=== PATIENT | male | born 1985 ===

== ENCOUNTER 2019-06-23 01:38 | Emergency (ER) | payer SELFPAY ==
[2019-06-23 02:01] VITALS: BP 135/87
[2019-06-23 02:36] LABS: Basophils # (Auto) 0.2 K/mm3 (0.0-0.1); Basophils % (Auto) 2.6 % (0.0-1.8); Eosinophils # (Auto) 0.1 K/mm3 (0.0-0.4); Eosinophils % (Auto) 1.2 % (0.0-4.3); Hematocrit 41.5 % (35.5-45.6); Hemoglobin 13.8 gm/dl (11.8-15.2); Lymphocytes # (Auto) 2.2 K/mm3 (1.2-5.4); Mean Corpuscular HGB Conc 33 % (32-34); Mean Corpuscular Volume 87 fl (84-94); Monocytes # (Auto) 0.3 K/mm3 (0.0-0.8); Monocytes % (Auto) 4.6 % (0.0-7.3); Platelet Count 257 K/mm3 (140-440); Red Blood Count 4.79 M/mm3 (3.65-5.03); Red Cell Distribution Width 13.3 % (13.2-15.2)
[2019-06-23 02:59] LABS: Alanine Aminotransferase 24 units/L (7-56); Albumin 4.5 g/dL (3.9-5); BUN/Creatinine Ratio 16; Blood Urea Nitrogen 14 mg/dL (9-20); Calcium 9.1 mg/dL (8.4-10.2); Hemolysis Index 20
--- NOTE | 2019-06-23 03:25 | Emergency Department Report ---
ED Abdominal Pain HPI - General Chief Complaint: Abdominal Pain Stated Complaint: RT SIDE PAIN Time Seen by Provider: 06/23/19 03:21 Source: patient Mode of arrival: Ambulatory Limitations: No Limitations - History of Present Illness Initial Comments: 34-year-old -[place] male presents to the emergency room for right flank pain 3 days. Patient reports that the pain is worse tonight. When I interviewed patient patient states that the pain has resolved. Patient has not taken anything for pain. He denies any nausea vomiting no urination pain. MD Complaint: abdominal pain Location: R flank Severity scale (0 -10): 0 - Related Data Allergies Allergy/AdvReac Type Severity Reaction Status Date / Time No Known Allergies Allergy Unverified 06/23/19 02:01 ED Review of Systems ROS: Stated complaint: RT SIDE PAIN Other details as noted in HPI Comment: All other systems reviewed and negative ED Past Medical Hx - Past Medical History Previous Medical History?: No - Surgical History Past Surgical History?: No - Social History Smoking Status: Never Smoker Substance Use Type: None ED Physical Exam - General Limitations: No Limitations General appearance: alert, in no apparent distress - Head Head exam: Present: atraumatic, normocephalic - Eye Eye exam: Present: normal appearance - ENT ENT exam: Present: mucous membranes moist - Neck Neck exam: Present: normal inspection - Respiratory Respiratory exam: Present: normal lung sounds bilaterally. Absent: respiratory distress - Cardiovascular Cardiovascular Exam: Present: regular rate, normal rhythm. Absent: systolic murmur, diastolic murmur, rubs, gallop - GI/Abdominal GI/Abdominal exam: Present: soft, normal bowel sounds - Rectal Rectal exam: Present: deferred - Extremities Exam Extremities exam: Present: normal inspection - Back Exam Back exam: Present: normal inspection - Neurological Exam Neurological exam: Present: alert, oriented X3 - Psychiatric Psychiatric exam: Present: normal affect, normal mood - Skin Skin exam: Present: warm, dry, intact, normal color. Absent: rash ED Course Vital Signs 06/23/19 01:57 Temperature 98.4 F Pulse Rate 58 L Respiratory 18 Rate Blood Pressure 135/87 O2 Sat by Pulse 96 Oximetry ED Medical Decision Making - Lab Data Result diagrams: 06/23/19 02:08 06/23/19 02:08 - Radiology Data Radiology results: report reviewed Patient: EMANUEL SCHAEFFER MR#: [id number] : 1985 Acct:[id number] Age/Sex: 34 / M ADM Date: 06/23/19 Loc: ED Attending Dr: Ordering Physician: RONEN VIVAR Date of Service: 06/23/19 Procedure(s): CT abdomen w con Accession Number(s): [id number] cc: RONEN VIVAR CT abdomen and pelvis with contrast INDICATION: RLQ abd pain. TECHNIQUE: All CT scans at this location are performed using the following dose modulation technique: Automated exposure control. CONTRAST: Omnipaque 300, 100 cc IV injection. COMPARISON: None available. CT ABDOMEN: The parenchymal organs are unremarkable in appearance other than a subcentimeter left renal cyst. Negative for abdominal mass, fluid or inflammation. The bowel is not dilated or thickened. CT PELVIS: Negative for pelvic mass, fluid or inflammation. Prostate calcification is noted. IMPRESSION: Negative for obstruction or localized inflammation. Signer Name: Geoffrey Alston MD Signed: 06/23/2019 4:07 AM Workstation Name: [facility] Transcribed By: ES Dictated By: Geoffrey Alston MD Electronically Authenticated By: Geoffrey Alston MD Signed Date/Time: 06/23/19406 DD/ 0 TD/TT: - Medical Decision Making 34-year-old -[place] male presents to the emergency room for right flank pain 3 days. Patient reports that the pain is worse tonight. When I interviewed patient patient states that the pain has resolved. Patient has not taken anything for pain. He denies any nausea vomiting no urination pain. Negative CT scan. Labs are within normal limits. Patient is to be discharged home and to follow up with her primary care provider. Critical care attestation.: If time is entered above; I have spent that time in minutes in the direct care of this critically ill patient, excluding procedure time. ED Disposition Clinical Impression: Acute abdominal pain Disposition: DC- TO HOME OR SELFCARE Is pt being admited?: No Does the pt Need Aspirin: No Condition: Stable Instructions: Abdominal Pain (ED) Referrals: PRIMARY CAREMD [Primary Care Provider] - 3-5 Days [facility] [Outside] - 3-5 Days Forms: Work/School Release Form(ED)
[2019-06-23 03:35] LABS: Bacteria,Urine 1+ /HPF (Negative); Bilirubin,Urine NEG (Negative); Blood,Urine NEG (Negative); Color,Urine Yellow (Yellow); Mucus,Urine 3+ /HPF
--- NOTE | 2019-06-23 04:11 | Cat Scan Report ---
CT abdomen and pelvis with contrast INDICATION: RLQ abd pain. TECHNIQUE: All CT scans at this location are performed using the following dose modulation technique: Automated exposure control. CONTRAST: Omnipaque 300, 100 cc IV injection. COMPARISON: None available. CT ABDOMEN: The parenchymal organs are unremarkable in appearance other than a subcentimeter left jasmyn al cyst. Negative for abdominal mass, fluid or inflammation. The bowel is not dilated or thickened. CT PELVIS: Negative for pelvic mass, fluid or inflammation. Prostate calcification is noted. IMPRESSION: Negative for obstruction or localized inflammation. Signer Name: Geoffrey Alston MD Signed: 06/23/2019 4:07 AM Workstation Name: [id number]
== END 2019-06-23 04:50 | disposition home or self-care (01) ==
LOC: ED 01:38
DX: R10.9 Unspecified abdominal pain (principal)
CPT/HCPCS: 36415; 74160; 80053; 81001; 85025; 87086; 99284; Q9967